=== PATIENT | female | born 1945 | race Two or more races ===

== ENCOUNTER 2023-07-22 07:26 | Inpatient (IN) | payer MEDICARE, OTHER ==
[~2023-07-22] VITALS: Ht 154.9 cm; Wt 66.2 kg
[2023-07-22 08:00] VITALS: BP 157/80; TEMP 97.7; O2SAT 98
[2023-07-22] MEDS ORDERED: dexaMETHasone SOD PHOSPHATE 2 ML ONE (09:45)
[2023-07-22] MEDS ORDERED: LIDOCAINE 2%-EPI 1:200,000 20 ML VIAL IJ ONE (09:45)
[2023-07-22] MEDS ORDERED: VANCOMYCIN 1 GM VIAL ONE (09:45)
[2023-07-22] MEDS ORDERED: SEVOFLURANE 250 ML BOTTLE IH ONE (10:27)
[2023-07-22 12:00] VITALS: BP 125/78; TEMP 98.2
[2023-07-22] MEDS ORDERED: ONDANSETRON HCL/PF 4 MG/2 ML VIAL IVP PRN (12:30)
[2023-07-22] MEDS ORDERED: HYDROMORPHONE 1 MG/1 ML DISP.SYRIN IV PRN (12:30)
[2023-07-22] MEDS ORDERED: ROSU40TA PO (14:44)
[2023-07-22] MEDS ORDERED: OLME20TA13 PO (14:44)
[2023-07-22] MEDS ORDERED: CARV12.52 PO (14:44)
[2023-07-22] MEDS ORDERED: ZOLP10TA2 PO (14:44)
[2023-07-22] MEDS ORDERED: MONT10TA22 PO (14:44)
[2023-07-22] MEDS ORDERED: PREG25CA PO (14:44)
[2023-07-22] MEDS ORDERED: APIX2.5T PO (14:44)
[2023-07-22] MEDS ORDERED: DRON400T6 PO (14:44)
[2023-07-22] MEDS ORDERED: SERT50TA12 PO (14:44)
[2023-07-22] MEDS ORDERED: EMPA10TA PO (14:44)
[2023-07-22] MEDS ORDERED: PANT40TA2 PO (14:44)
[2023-07-22] MEDS ORDERED: CHOL100043 PO (14:44)
[2023-07-22] MEDS ORDERED: DOCU100C36 PO (14:44)
[2023-07-22 16:00] VITALS: BP 141/58; TEMP 97.5; O2SAT 97
[2023-07-22] MEDS: IV NS 0.9% 1,000 ML IV PRN (17:24)
[2023-07-22 20:00] VITALS: BP 126/56; TEMP 97.7; O2SAT 96
[2023-07-22] MEDS: VANCOMYCIN 1 GM in IV D5W 250ml IV SCH (21:03)
[2023-07-22] MEDS: ACETAMINOPHEN 325 MG TABLET PO PRN (21:29)
[2023-07-22 22:51] VITALS: BP 141/58; TEMP 97.5; O2SAT 97
[2023-07-22] MEDS: ZOLPIDEM TARTRATE 10 MG TABLET PO PRN (23:14)
[2023-07-23 08:00] VITALS: BP 131/52; TEMP 97.7; O2SAT 97
== END 2023-07-23 11:15 | disposition home or self-care (01) | DRG 908 ==
LOC: DS 07:26 → MED 08:01
PROVIDERS: ADMIT Student in an Organized Health Care Education/Training Program; ATTEND Student in an Organized Health Care Education/Training Program
PROC: 0NSR04Z Reposition Maxilla with Internal Fixation Device, Open Approach (ICD-10-PCS; principal; 2023-07-22)
PROC: 0NUR07Z Supplement Maxilla with Autologous Tissue Substitute, Open Approach (ICD-10-PCS; 2023-07-22)
PROC: 0NBR0ZX Excision of Maxilla, Open Approach, Diagnostic (ICD-10-PCS; 2023-07-22)
DX: T86.831 Bone graft failure (principal); M87.88 Other osteonecrosis, other site; S02.40DK Maxillary fracture, left side, subsequent encounter for fracture with nonunion; J34.89 Other specified disorders of nose and nasal sinuses; E11.9 Type 2 diabetes mellitus without complications; E78.5 Hyperlipidemia, unspecified; I10 Essential (primary) hypertension; Y83.2 Surgical operation with anastomosis, bypass or graft as the cause of abnormal reaction of the patient, or of later complication, without mention of misadventure at the time of the procedure; Y92.009 Unspecified place in unspecified non-institutional (private) residence as the place of occurrence of the external cause
CPT/HCPCS: 70100-TC; C1713; G0378; J0690; J1100; J2704; J3370; J3490; J7060